=== PATIENT | female | born 1970 | race Two or more races ===

== ENCOUNTER 2019-03-14 22:19 | Emergency (ER) | payer BC ==
[~2019-03-14] VITALS: Ht 152.4 cm; Wt 63.5 kg
[2019-03-14 23:06] VITALS: BP 162/78
[2019-03-15] MEDS ORDERED: FLUORESCEIN OPHTH TEST STRIP. ONE (00:14)
[2019-03-15] MEDS ORDERED: TETRACAINE 0.5% OPHTH SOLUTION 4ML BOTTLE. ONE (00:14)
[2019-03-15] MEDS ORDERED: FLUORESCEIN OPHTH TEST STRIP. OD ONE (00:15)
[2019-03-15] MEDS ORDERED: TETRACAINE 0.5% OPHTH SOLUTION 4ML BOTTLE. OD ONE (00:15)
[2019-03-15] MEDS ORDERED: HYDROcodone/APAP 5/325MG 1 TAB TABLET PO ONE (01:30)
[2019-03-15] MEDS ORDERED: ERYTHROMYCIN 0.5% OPHTH OINTMENT 1GM TUBE. OD ONE (01:30)
[2019-03-15] MEDS ORDERED: ERYT1OIN6 OD (01:31)
[2019-03-15] MEDS ORDERED: HYDR-2761 PO (01:31)
[2019-03-15] MEDS ORDERED: ATRO2DRO3 OD (01:31)
--- NOTE | 2019-03-15 01:32 | PHYS DOC ---
Past Medical History Past Medical History: No Pertinent History Past Surgical History: Cholecystectomy Alcohol Use: Rarely Drug Use: None Adult General Chief Complaint Chief Complaint: FOREIGN BODY/EYES HPI HPI Patient is a 48 year old female, accompanied by her family, with complaints of right eye pain after trimming a tree this afternoon and having a branch hit her face. Patient denies any vision changes, states she feels like something is stuck in her right eye and complains of pain in her right eye. Currently she rates her pain an 8 out of 10 on the pain scale, she denies any alleviating factors. Review of Systems Review of Systems Constitutional: Denies fever or chills [] Eyes: Denies change in visual acuity, see HPI Integument: reports abrasion to right eye lid Neurologic: Denies headache, focal weakness or sensory changes [] Current Medications Current Medications Current Medications Medications (Trade) Dose Ordered Sig/Joelle Start Time Stop Time Status Last Admin Dose Admin Acetaminophen/ Hydrocodone Bitart (Lortab 5/325) 1 tab 1X ONCE 03/15/19 01:30 03/15/19 01:31 DC Erythromycin (Romycin) 0.25 inch 1X ONCE 03/15/19 01:30 03/15/19 01:31 DC Fluorescein Sodium (Ful-Geraldine) 1 strip STK-MED ONCE 03/15/19 00:14 03/15/19 00:15 DC Tetracaine HCl (Tetracaine) 40 drop STK-MED ONCE 03/15/19 00:14 03/15/19 00:15 DC Allergies Allergies Allergies Coded Allergies Type Severity Reaction Last Updated Verified No Known Drug Allergies 03/14/19 No Physical Exam Physical Exam Constitutional: Well developed, well nourished, no acute distress, non-toxic appearance. [] HENT: Normocephalic, atraumatic, bilateral external ears normal, oropharynx moist, no oral exudates, nose normal. [] Eyes: PERRLA, EOMI, R eye conjunctiva injected, L eye conjunctiva normal, no discharge; Neck: Normal range of motion, no stridor. [] Lungs & Thorax: Respirations even and unlabored, no retractions, no respiratory distress Skin: Warm, dry, no erythema, no rash; abrasions noted to upper R eyelid no bleeding or drainage. [] [] Extremities: No cyanosis, ROM intact Neurologic: Alert and oriented X 3, no focal deficits noted. [] Psychologic: Affect normal, judgement normal, mood normal. [] Current Patient Data Vital Signs Vital Signs Date Time Temp Pulse Resp B/P (MAP) Pulse Ox O2 Delivery O2 Flow Rate FiO2 03/14/19 23:06 98.1 59 20 162/78 (106) 100 Room Air 98.1 EKG EKG [] Radiology/Procedures Radiology/Procedures Using tetracaine and fluroscein the patient's eye was examined under Wood's lamp and an area of uptake was noted running vertically from 12 o'clock to 7 o'clock over the pupil was noted. Patient's ocular symptoms have stabilized while they have been evaluated in the department and are appropriate for outpatient work up. No evidence of ruptured globe, retinal detachment, acute angle closure glaucoma, or deep space infection. Plan for 24 hour ophthalmologic follow up.[] Course & Med Decision Making Course & Med Decision Making Pertinent Labs and Imaging studies reviewed. (See chart for details) Dx: R eye corneal abrasion and injury of conjunctiva eye exam as documented in procedures. Discussed findings with Dr. Rodriguez will prescribe pt hydrocodone, erythromycin eye ointment, and atropine drops for treatment of condition and have patient follow up with Dr. Troy for re-evaluation tomorrow Patient and her family memeber verbalized an understanding of home care, medications, follow-up, and return to ED instructions and was in agreement with the plan of care. [] Dragon Disclaimer Dragon Disclaimer This electronic medical record was generated, in whole or in part, using a voice recognition dictation system. Departure Departure Impression: Primary Impression: Injury of conjunctiva and corneal abrasion without foreign body, right eye, initial encounter Disposition: 01 HOME, SELF-CARE Condition: STABLE Referrals: NO PCP (PCP) Norm TROY MD Patient Instructions: Eye - Corneal Abrasion, [id number] Additional Instructions: Fill the prescriptions and use as directed. Follow up with Dr. Woodrow ruiz, call in the morning for an appointment. Return to the ER if symptoms worsen. Scripts Atropine Sulfate (Atropine Sulfate) 2 Ml Drops 2 DROP OD BID PRN for PAIN for 3 Days, #1 BOT 0 Refills Prov: PILAR HOLLY DRYING ROOM ATTENDANT 03/15/19 Erythromycin Base (Erythromycin) 1 Gm Oint...g. 0.5 INCH OD QID for 5 Days, #1 TUBE 0 Refills Prov: PILAR HOLLY APRN 03/15/19 Hydrocodone Bit/Acetaminophen (HYDROCODONE-APAP 5-325 ) 1 Tab Tablet 1 TAB PO PRN Q6HRS PRN for PAIN for 2 Days, #8 TAB 0 Refills Prov: PILAR HOLLY APRN 03/15/19 PILAR HOLLY APRN Mar 15, 2019 01:32
== END 2019-03-15 01:48 | disposition home or self-care (01) ==
LOC: ER 22:19
DX: S05.01XA Injury of conjunctiva and corneal abrasion without foreign body, right eye, initial encounter (principal); Z90.49 Acquired absence of other specified parts of digestive tract; X58.XXXA Exposure to other specified factors, initial encounter; Y93.89 Activity, other specified; Y92.89 Other specified places as the place of occurrence of the external cause; Y99.8 Other external cause status
CPT/HCPCS: 99284